=== PATIENT | male | born 1975 | race Caucasian/White ===

== ENCOUNTER 2025-09-26 13:41 | Outpatient (CLI) | payer BC | END 2025-09-26 13:42 | disposition home or self-care (01) | LOC: CSHDTY/OP 13:41 | PROVIDERS: ATTEND Surgery | DX: Z71.3 Dietary counseling and surveillance (principal); E66.01 Morbid (severe) obesity due to excess calories | CPT/HCPCS: 97802 ==

== ENCOUNTER 2025-10-24 10:56 | Outpatient (CLI) | payer BC | END 2025-10-24 10:57 | disposition home or self-care (01) | LOC: CSHDTY/OP 10:56 | PROVIDERS: ATTEND Surgery | DX: Z71.3 Dietary counseling and surveillance (principal); E66.01 Morbid (severe) obesity due to excess calories | CPT/HCPCS: 97802 ==